=== PATIENT | male | born 1945 | race Hispanic/Latino ===

== ENCOUNTER 2018-09-26 05:50 | Day surgery (SDC) | payer BC, OTHER ==
[2018-09-25 12:22] VITALS: BP 164/70
[2018-09-25 12:24] LABS: HEMATOCRIT 43.6 % (42-54); MEAN CORPUSCULAR HEMOGLOBIN 29.1 pg (27.0-33.0); MEAN CORPUSCULAR HGB CONC 32.9 g/dL (32.0-36.0); MEAN CORPUSCULAR VOLUME 88.5 fL (79-99); PLATELET COUNT (AUTO) 221 K/uL (130-400); RED BLOOD CELL COUNT(AUTO) 4.93 MIL/uL (4.50-6.20); RED CELL DISTRIBUTION WIDTH 14.7 % (11.0-15.5); WHITE BLOOD COUNT (AUTO) 5.1 K/uL (4.8-10.8)
[2018-09-25 12:28] LABS: APPEARANCE,URINE Clear (CLEAR); BILIRUBIN,URINE Negative (NEGATIVE); COLOR,URINE Yellow (YELLOW); GLUCOSE, URINE (UA) Negative (NEGATIVE); KETONES,URINE Negative (NEGATIVE); LEUKOCYTE ESTERASE ,URINE Negative (NEGATIVE); NITRATE,URINE Negative (NEGATIVE); OCCULT BLOOD,URINE Negative (NEGATIVE); PROTEIN,URINE Negative (NEGATIVE); UROBILINOGEN,URINE 0.2 mg/dL (0.2-1.0)
[2018-09-25 12:40] LABS: INR 1.02 (0.85-1.15); PARTIAL THROMBOPLASTIN TIME 30.5 SEC (26.3-35.5); PROTHROMBIN TIME 10.7 SEC (9.6-11.6)
[2018-09-25 12:42] LABS: POTASSIUM 4.1 mmol/L (3.5-5.1)
[~2018-09-26] VITALS: Ht 168.9 cm; Wt 95.1 kg
[2018-09-26] VITALS (14 sets, daily range): BP systolic 122–145; BP diastolic 56–80
[2018-09-26] MEDS: CEFAZOLIN SODIUM 1 GM VIAL IVP SCH ×2 (05:00→07:20)
[~2018-09-26 05:50] MED LIST: ASPI-555 PO; CAPT50TA3 PO; IBUP-2353 PO; METF-444 PO; MITOMYCIN 40 MG VIAL IV SCH; OMEP20TA25 PO
[2018-09-26] MEDS ORDERED: LACTATED RINGERS 1000ML 0 ML IV ONE (06:26)
[2018-09-26] MEDS ORDERED: SODIUM CHLORIDE 0.9% 1000ML 1,000 ML IV ONE (06:30)
[2018-09-26] MEDS ORDERED: MITOMYCIN 40 MG VIAL ONE (06:31)
[2018-09-26] MEDS ORDERED: LEVO50TA11 PO (06:41)
[2018-09-26] MEDS ORDERED: ATOR20TA65 PO (06:41)
[2018-09-26] MEDS ORDERED: FENTANYL CITRATE PF 50 MCG/1 ML 2ML VIAL ONE (06:54)
[2018-09-26] MEDS ORDERED: MIDAZOLAM HCL 1 MG/ML 2ML VIAL ONE (06:54)
[2018-09-26] MEDS ORDERED: PROPOFOL 10 MG/ML 20ML VIAL IV ONE (06:54)
[2018-09-26] MEDS ORDERED: ROCURONIUM 10MG/1ML SYR 10 MG/ML ML ONE (06:56)
[2018-09-26] MEDS ORDERED: LIDOCAINE PF 2% 5ML ABBOJECT ONE (06:56)
[2018-09-26] MEDS ORDERED: EPHEDRINE SULFATE 50 MG/ML AMPULE ONE (07:30)
[2018-09-26] MEDS ORDERED: ONDANSETRON HCL 4 MG/2 ML VIAL ONE (07:42)
[2018-09-26] MEDS ORDERED: DEXAMETHASONE SOD PHOSPHATE 10MG/ML 1ML VIAL ONE (07:42)
[2018-09-26] MEDS ORDERED: GLYCOPYRROLATE 1 MG/5 ML SYRINGE ONE (07:44)
[2018-09-26] MEDS ORDERED: NEOSTIGMINE 5MG/5ML SYR IV ONE (07:44)
== END 2018-09-26 09:35 | disposition home or self-care (01) ==
LOC: DAH 05:50
PROVIDERS: ATTEND Urology
DX: C67.9 Malignant neoplasm of bladder, unspecified (principal); Z79.899 Other long term (current) drug therapy; Z98.890 Other specified postprocedural states; Z79.82 Long term (current) use of aspirin; I10 Essential (primary) hypertension; E07.9 Disorder of thyroid, unspecified; Z79.01 Long term (current) use of anticoagulants
CPT/HCPCS: 36415; 52204; 71046; 80048; 81003; 82948 ×2; 85027; 85610; 85730; 87088; 93005; A4218; A4344; A4354; A4358; A4600; A4930; A5113; J0690; J1100; J2001; J2250; J2405; J2704; J2710; J3010; J3490 ×2; J7030 ×2; J9280 ×2; J7120